=== PATIENT | female | born 1970 | race Caucasian/White ===

== ENCOUNTER → 2016-12-15 | Outpatient (CLI) | payer BC ==
--- NOTE | ~2016-12-15 | US98 ---
[facility] A Service of [facility] RADIOLOGY TEXT RESULTS PATIENT: BALDOMERO FELIX LOCATION: [facility] : 70 UNIT #: [id number] AGE: [address]: JACKIE RODRIGUEZ APRN SEX: F ORDER DR: [id number] [address] [address] [id number] O MR#: [id number] Acc #: [id number] NAME: BALDOMERO FELIX : 1970 SEX: F STUDY DATE/TIME: 12/15/2016 10:58 UNIT: [facility] ROOM: STUDY DESCRIPTION: US Pelvic Non-OB Complete Attending Physician: Jackie Rodriguez A.P.R.N. Referring Physician: Jackie Rodriguez A.P.R.N. Ordering Physician: Physician Non-Staff Primary Care Physician: Nicolas Vivar M.D. MEDICAL IMAGING REPORT This report is preliminary unless electronic signature is present. EXAM Pelvic ultrasound INDICATION Heavy menses. Patient had an abnormal physical exam on December 12, 2016 and was felt to have a cervical lesion. Last normal menstrual period was November 27, 2016. FINDINGS The uterus measures 4.5 x 8.7 x 6.1 cm. It is homogeneous in echotexture. Endometrium measures up to about 1.1 cm which is within normal limits for a 46-year-old premenopausal woman. She is noted to have multiple nabothian cysts near the cervix. Both ovaries are better seen on the transabdominal images. Patient does have a hypoechoic structure seen arising from the left ovary. No color Doppler flow is identified within it. It measures 1.8 x 1.5 x 1.2 cm and is favored to represent a simple cyst. Patient is noted to have normal color Doppler flow within the ovaries. IMPRESSION 1. Suspected left ovarian cyst. 2. Patient is noted have multiple nabothian cysts near the cervix. 1. Dictated by... Mahogany Hua M.D. THIS IS AN ELECTRONICALLY VERIFIED REPORT Mahogany Hua M.D. at 12/16/2016 9:46 AM AFF/jw TD: 12/15/2016 16:24 JOB #: [id number] [facility] A Service of [facility] RADIOLOGY TEXT RESULTS PATIENT: BALDOMERO FELIX LOCATION: [facility] : 70 UNIT #: [id number] AGE: [address]: JACKIE RODRIGUEZ APRN SEX: F ORDER DR: MEDICAL IMAGING REPORT Page 1 of 1
== END | disposition home or self-care (01) ==
LOC: SGUS 09:53
DX: N88.9 Noninflammatory disorder of cervix uteri, unspecified (principal); N92.0 Excessive and frequent menstruation with regular cycle
CPT/HCPCS: 76830; 76856